=== PATIENT | male | born 1970 | race Caucasian/White ===

== ENCOUNTER 2019-11-15 01:29 | Inpatient (IN) | payer BC ==
[~2019-11-15] VITALS: Ht 180.3 cm; Wt 107.2 kg
[2019-11-15] MEDS ORDERED: morphine 4 MG/ML inj SYRINge IV PRN (01:35)
[2019-11-15] MEDS ORDERED: ondansetron/PF 4mg/2ml inj IV ONE (01:35)
--- NOTE | 2019-11-15 01:42 | NUR ---
Patient to [facility] by [facility]. Patient placed on monitor and updated on POC. Labs drawn and dopamine stopped by order of Dr. Lawrence. Will continue to closely monitor the patient's blood pressure.
--- NOTE | 2019-11-15 01:51 | NUR ---
Morphine and zofran orders acknowledged. Patient reports pain 2/10 and states he doesn't feel he needs it at this time. Patient educated and understands that morphine is ordered and that he may request it at any time.
--- NOTE | 2019-11-15 01:52 | NUR ---
BP 99/46, Dr. Lawrence notified. No orders at this time. Will continue to closely monitor BP and patient's condition.
[2019-11-15] MEDS ORDERED: normal saline 1000ml 1,000 ML IV SCH (02:00)
[2019-11-15 02:06] LABS: ALANINE AMINOTRANSFERASE 29 U/L (12-78); ALBUMIN 3.1 G/DL (3.4-5.0); ALKALINE PHOSPHATASE 66 IU/L (46-116); ANION GAP 7 (8-16); ASPARTATE AMINO TRANSFERASE 29 U/L (10-37); BILIRUBIN,TOTAL 1.1 MG/DL (0.1-1.0); BLOOD UREA NITROGEN 20 MG/DL (7-18); BUN/CREATININE RATIO 16.1 (5.4-32.0); CALCIUM 7.8 MG/DL (8.5-10.1); CHLORIDE 110 MMOL/L (99-107); CREATININE 1.24 MG/DL (0.60-1.10); GLUCOSE 162 MG/DL (70-104); LIPASE 117 U/L (73-393); POTASSIUM 4.3 MMOL/L (3.5-5.1); SODIUM 142 MMOL/L (135-145); TOTAL CARBON DIOXIDE 25.1 MMOL/L (24-32); TOTAL PROTEIN 6.2 G/DL (6.4-8.2); eGFR 62 ML/MIN
[2019-11-15 02:16] LABS: BASOPHILS % (AUTO) 0.1 % (0-1); EOSINOPHILS % (AUTO) 0.2 % (0-6); HEMATOCRIT 38.5 % (42.0-52.0); HEMOGLOBIN 13.5 g/dl (14.0-17.9); LYMPHOCYTES # (AUTO) 0.2 X10'3 (1.1-4.8); LYMPHOCYTES % (AUTO) 3.9 % (21-51); MEAN CORPUSCULAR HEMOGLOBIN 32.1 PG (27.0-31.0); MEAN CORPUSCULAR HGB CONC 35.2 g/dL (33.0-36.5); MEAN CORPUSCULAR VOLUME 91.3 FL (78-98); MEAN PLATELET VOLUME 7.3 FL (7.4-10.4); MONOCYTES # (AUTO) 0.4 X10'3 (0-0.9); MONOCYTES % (AUTO) 7.9 % (2-12); NEUTROPHILS # (AUTO) 4.4 X10'3 (1.8-7.7); NEUTROPHILS % (AUTO) 87.9 % (42-75); PLATELET COUNT 163 X10'3 (140-440); RED BLOOD COUNT 4.21 X10'6 (4.70-6.10); RED CELL DISTRIBUTION WIDTH 12.7 % (11.5-14.5)
--- NOTE | 2019-11-15 02:45 | NUR ---
Patient ambulated to restroom and had another bout of diarrhea. Patient had no difficulty getting to restroom on his own and back to the bed.
[2019-11-15] MEDS ORDERED: magnesium hydroxide 30ml (MOM) UD suspension PO PRN (03:25)
[2019-11-15] MEDS ORDERED: ondansetron/PF 4mg/2ml inj IV PRN (03:25)
[2019-11-15] MEDS ORDERED: HYDROcodone/acetaminophen 5mg/325mg tablet PO PRN (03:25)
[2019-11-15] MEDS ORDERED: morphine 2 MG/ML inj. syringe IV PRN ×2 (03:25)
[2019-11-15] MEDS ORDERED: HYDROcodone/acetaminophen 10/325mg tab PO PRN (03:25)
[2019-11-15] MEDS ORDERED: acetaminophen 325mg tablet PO PRN ×2 (03:25)
[2019-11-15] MEDS ORDERED: mag hydrox/Alum hydrox/simeth 30ml oral suspension PO PRN (03:25)
[2019-11-15 04:00] VITALS: BP 127/52
--- NOTE | 2019-11-15 04:00 | NUR ---
Received report from Samuel ED RN. Patient arrived to [facility] via [facility] HEATON transporting. and son by his side. Patient is not in any distress. I will continue to monitor.
--- NOTE | 2019-11-15 06:23 | NUR ---
Problems reprioritized. Patient report given, questions answered & plan of care reviewed with SUDARSHAN Pavon.
--- NOTE | 2019-11-15 06:55 | NUR ---
Patient in room [facility]. I have received report from Hosea HEATON and had the opportunity to ask questions and assume patient care.
[2019-11-15 07:00] VITALS: BP 110/55
[2019-11-15 07:17] VITALS: BP 110/55
[2019-11-15] MEDS: piperacillin/tazo 3.375gm/50ml 50 ML IV SCH ×3 (08:46→23:26)
[2019-11-15] MEDS: enoxaparin 40mg/0.4ml syringe SUBCUT SCH (08:53)
[2019-11-15] MEDS: normal saline 1000ml 1,000 ML IV SCH ×3 (12:07→23:23)
[2019-11-15 12:13] VITALS: BP 103/53
[2019-11-15] MEDS ORDERED: BENA20TA76 PO (12:53)
[2019-11-15] MEDS ORDERED: potassium Cl 20 mEq SR tablet PO PRN ×2 (13:25)
[2019-11-15] MEDS ORDERED: potassium CL 10mEq/100ml bag 100 ML IV PRN (13:25)
[2019-11-15] MEDS ORDERED: magnesium 4gm in 100ml NS 100 ML IV PRN (13:25)
[2019-11-15] MEDS ORDERED: magnesium Cl slow-release 64mg tablet PO PRN (13:25)
[2019-11-15] MEDS: K and/or MAG REPLACEMENT MC SCH ×2 (13:25→19:37)
--- NOTE | 2019-11-15 13:48 | NUR ---
Problems reprioritized. Patient report given, questions answered & plan of care reviewed with Barrett.
--- NOTE | 2019-11-15 13:49 | NUR ---
Patient in room [facility]. I have received report from Librado HEATON and had the opportunity to ask questions and assume patient care.
--- NOTE | 2019-11-15 14:30 | NUR ---
I agree with all physical assessment findings charted by Librado HEATON.
[2019-11-15 15:06] LABS: CLARITY,URINE CLEAR (Clear); COLOR,URINE YELLOW (Yellow); GLUCOSE, URINE NEGATIVE (Neg); KETONES,URINE NEGATIVE (Neg); LEUKOCYTE ESTERASE ,URINE NEGATIVE (Neg); NITRITES, URINE NEGATIVE (Neg); OCCULT BLOOD,URINE SMALL (Neg); PROTEIN,URINE NEGATIVE (Neg); UROBILINOGEN,URINE 0.2 E.U/dL (0.2-1.0)
[2019-11-15 15:10] LABS: UA COLLECTION TYPE NON-SPECIFIED
[2019-11-15 15:12] LABS: BACTERIA,URINE NONE SEEN /HPF (Neg); MUCUS STRANDS NONE SEEN /LPF (Neg); SQUAMOUS EPITHELIAL CELL,UR FEW /LPF (FEW); WBC,URINE NONE SEEN /HPF (0-4)
[2019-11-15 15:21] LABS: URINE AMPHETAMINE SCREEN NEGATIVE (Neg); URINE BARBITUATE SCREEN NEGATIVE (Neg); URINE BENZODIAZEPINES SCREEN NEGATIVE (Neg); URINE CANNABINOID SCREEN NEGATIVE (Neg); URINE COCAINE SCREEN NEGATIVE (Neg); URINE METHADONE SCREEN NEGATIVE (Neg); URINE OPIATE SCREEN NEGATIVE (Neg); URINE PHENCYCLIDINE SCREEN NEGATIVE (Neg)
--- NOTE | 2019-11-15 18:30 | NUR ---
Problems reprioritized. Patient report given, questions answered & plan of care reviewed with Elana HEATON.
--- NOTE | 2019-11-15 18:38 | NUR ---
Patient in room [facility]. I have received report from Zaira HEATON and Griselda HEATON and had the opportunity to ask questions and assume patient care.
[2019-11-15 19:00] VITALS: BP 117/66
[2019-11-15] MEDS ORDERED: metoprolol tartrate 1mg/ml inj IV PRN (21:55)
[2019-11-15] MEDS ORDERED: nitroGLYCERIN 0.4mg SUBLingual tab SL PRN (21:55)
[2019-11-15] MEDS ORDERED: regadenoson 0.4mg/5ml syringe IV ONE (21:55)
[2019-11-15] MEDS ORDERED: aminophylline 250mg/10ml inj. IV PRN (21:55)
--- NOTE | 2019-11-15 22:23 | NUR ---
radiology called to see if patient was infact going to have the CtA of abd/chest . NO MD note indicating that it would be needed tonight so radiology stated that they would reschedule for tomorrow. Noted that patient also to have a gage scan tomorrow.
[2019-11-16] VITALS (12 sets, daily range): BP systolic 113–154; BP diastolic 67–85
[2019-11-16 04:53] LABS: BASOPHILS % (AUTO) 0.4 % (0-1); EOSINOPHILS # (AUTO) 0.3 X10'3 (0-0.9); EOSINOPHILS % (AUTO) 4.1 % (0-6); HEMATOCRIT 34.6 % (42.0-52.0); HEMOGLOBIN 12.3 g/dl (14.0-17.9); LYMPHOCYTES # (AUTO) 0.9 X10'3 (1.1-4.8); LYMPHOCYTES % (AUTO) 13.7 % (21-51); MEAN CORPUSCULAR HEMOGLOBIN 32.1 PG (27.0-31.0); MEAN CORPUSCULAR HGB CONC 35.7 g/dL (33.0-36.5); MEAN CORPUSCULAR VOLUME 89.9 FL (78-98); MEAN PLATELET VOLUME 7.5 FL (7.4-10.4); MONOCYTES # (AUTO) 0.6 X10'3 (0-0.9); MONOCYTES % (AUTO) 8.2 % (2-12); NEUTROPHILS % (AUTO) 73.6 % (42-75); PLATELET COUNT 166 X10'3 (140-440); RED BLOOD COUNT 3.84 X10'6 (4.70-6.10); RED CELL DISTRIBUTION WIDTH 12.5 % (11.5-14.5); WHITE BLOOD COUNT 6.8 X10'3 (4.5-11.0)
[2019-11-16 05:06] LABS: ALANINE AMINOTRANSFERASE 25 U/L (12-78); ALBUMIN 2.7 G/DL (3.4-5.0); ALBUMIN/GLOBULIN RATIO 0.9 (1.1-1.5); ALKALINE PHOSPHATASE 55 IU/L (46-116); ANION GAP 6 (8-16); ASPARTATE AMINO TRANSFERASE 26 U/L (10-37); BILIRUBIN,TOTAL 0.8 MG/DL (0.1-1.0); BLOOD UREA NITROGEN 9 MG/DL (7-18); BUN/CREATININE RATIO 9.4 (5.4-32.0); CALCIUM 8.1 MG/DL (8.5-10.1); CHLORIDE 109 MMOL/L (99-107); CREATININE 0.96 MG/DL (0.60-1.10); GLUCOSE 106 MG/DL (70-104); MAGNESIUM 1.7 MG/DL (1.5-2.4); PHOSPHORUS 1.7 MG/DL (2.3-4.5); POTASSIUM 4.2 MMOL/L (3.5-5.1); SODIUM 141 MMOL/L (135-145); TOTAL CARBON DIOXIDE 26.4 MMOL/L (24-32); TOTAL PROTEIN 5.8 G/DL (6.4-8.2); eGFR 83 ML/MIN
--- NOTE | 2019-11-16 06:23 | NUR ---
Problems reprioritized. Patient report given, questions answered & plan of care reviewed with Zaira HEATON and Griselda HEATON.
[2019-11-16] MEDS: K and/or MAG REPLACEMENT MC SCH (08:00)
[2019-11-16] MEDS: enoxaparin 40mg/0.4ml syringe SUBCUT SCH (08:00)
[2019-11-16] MEDS: piperacillin/tazo 3.375gm/50ml 50 ML IV SCH ×2 (10:24→16:13)
[2019-11-16] MEDS: normal saline 1000ml 1,000 ML IV SCH (12:50)
[2019-11-16] MEDS ORDERED: iohexol 350MG/ML 100ml bottle IV ONE (14:09)
--- NOTE | 2019-11-16 15:01 | NUR ---
pt back from [facility] and [facility]
[2019-11-16] MEDS ORDERED: LEVO750T46 PO (16:08)
[2019-11-16] MEDS ORDERED: METR-159 PO (16:08)
--- NOTE | 2019-11-16 16:39 | NUR ---
Prescriptions called to [facility] in [place], [place]
--- NOTE | 2019-11-16 19:03 | NUR ---
pt discharged home at 1750, ambulated out accompanied by family. All personal belongings with patient. Discharge instructions and meds reviewed. IV d/c'd, cannula intact. Pt instructed to followup with PCP.
== END 2019-11-16 17:55 | disposition home or self-care (01) | DRG 871 ==
LOC: ER 01:29 → ED HOLD 03:21 → SUR 3N 04:00
PROVIDERS: ADMIT Internal Medicine; ATTEND Family Medicine
PROC: 4A02XM4 Measurement of Cardiac Total Activity, External Approach (ICD-10-PCS; principal; 2019-11-16)
PROC: 3E033HZ Introduction of Radioactive Substance into Peripheral Vein, Percutaneous Approach (ICD-10-PCS; 2019-11-16)
PROC: B32T1ZZ Computerized Tomography (CT Scan) of Left Pulmonary Artery using Low Osmolar Contrast (ICD-10-PCS; 2019-11-16)
PROC: B3201ZZ Computerized Tomography (CT Scan) of Thoracic Aorta using Low Osmolar Contrast (ICD-10-PCS; 2019-11-16)
PROC: B32S1ZZ Computerized Tomography (CT Scan) of Right Pulmonary Artery using Low Osmolar Contrast (ICD-10-PCS; 2019-11-16)
DX: A41.9 Sepsis, unspecified organism (principal); J18.9 Pneumonia, unspecified organism; K57.92 Diverticulitis of intestine, part unspecified, without perforation or abscess without bleeding; I10 Essential (primary) hypertension; R65.20 Severe sepsis without septic shock; I95.9 Hypotension, unspecified; Z90.49 Acquired absence of other specified parts of digestive tract
CPT/HCPCS: 36415; 71275; 78452; 80053; 80305; 81001; 83605; 83690; 83735; 84100; 85025; 87040; 87081; 93005; 93017; 93306; 99285; A9500; G0378; J0280; J1650; J2543; J2785; J7030; Q9967